=== PATIENT | male | born 1985 | race Caucasian/White ===

== ENCOUNTER 2023-07-28 09:09 | Emergency (ER) | payer MEDICAID, SELFPAY ==
[2023-07-28 09:13] VITALS: BP 135/111; PULSE 96; RESP 18; TEMP 36.8; O2SAT 98; BMI 35.3
--- NOTE | 2023-07-28 09:21 | ED.GENADUL1 ---
HPI - General Adult General Chief complaint: Skin/Abscess/Foreign Body Stated complaint: LOWER EXTREMITY PAIN Time Seen by Provider: 07/28/23 09:18 Source: patient Mode of arrival: walk-in Limitations: no limitations History of Present Illness HPI narrative: Patient complains of pain in the left lower buttock where he had an abscess removed [address] Pool - started about 2 weeks ago. he has subsequently developed nausea, achiness, cough and some loose stools over the last couple of days. Uncertain regarding ill contacts. No abdominal pain or problems with urination. Related Data Previous Rx's Medication Instructions Recorded cephalexin 500 mg capsule 500 mg PO QID 7 days #28 caps 07/28/23 nabumetone 750 mg tablet 750 mg PO BID PRN pain #14 tabs 07/28/23 ondansetron 4 mg disintegrating 4 mg PO Q6H PRN nausea and 07/28/23 tablet vomiting #14 tabs Allergies Allergy/AdvReac Type Severity Reaction Status Date / Time No Known Drug Allergies Allergy Verified 07/28/23 09:13 Exam Narrative Exam Narrative: Nurses notes and vital signs reviewed and patient is not hypoxic. afebrile General: Well-appearing and in no apparent distress. Skin: Warm, dry, no pallor noted. No rash. Eye: Pupils are equal, round and EOMI. No scleral icterus. Cardiovascular: Regular Rate and Rhythm without murmur, gallop or rub. Respiratory: No accessory muscle use or respiratory distress. Lungs are clear to auscultation, no wheezing, rales or rhonchi Back: No midline thoracic or lumbar vertebral tenderness. No CVA tenderness. Left Buttocks: incision scar is well healed without dehiscence. There is small area of erythema measuring 1cm x 2cm in the left lower buttock without palpable abscess - no induration or fluctuance. No palpable mass. Musculoskeletal: normal ROM Neurological: A&O x4. No cranial nerve dysfunction observed. No truncal ataxia. Moves all extremities. Sensation intact. Psychiatric: Cooperative and interactive. Normal mood and affect. Constitutional Vital Signs, click to edit/add: Last Vital Signs Temp 98.3 F 07/28/23 09:13 Pulse 96 H 07/28/23 09:13 Resp 18 07/28/23 09:13 BP 135/111 H 07/28/23 09:13 Pulse Ox 98 07/28/23 09:13 O2 Del Method Room Air 07/28/23 09:13 Course Vital Signs Vital signs: Vital Signs Temperature 98.3 F 07/28/23 09:13 Pulse Rate 96 H 07/28/23 09:13 Respiratory Rate 18 07/28/23 09:13 Blood Pressure 135/111 H 07/28/23 09:13 Pulse Oximetry 98 07/28/23 09:13 Oxygen Delivery Method Room Air 07/28/23 09:13 Temperature 98.3 F 07/28/23 09:13 Pulse Rate 96 H 07/28/23 09:13 Respiratory Rate 18 07/28/23 09:13 Blood Pressure 135/111 H 07/28/23 09:13 Pulse Oximetry 98 07/28/23 09:13 Oxygen Delivery Method Room Air 07/28/23 09:13 Medical Decision Making MDM Narrative Medical decision making narrative: Patient with cellulitis to the left lower buttock. He subsequently developed symptoms that we are seeing locally on larger scale with circulating viral infections. Patient discharged home with prescriptions for antibiotics, anti-emetic and anti-inflammatory pain med. He can see his PCP - [facility] - for follow up. Discharge Plan Discharge Chief Complaint: Skin/Abscess/Foreign Body Clinical Impression: Acute viral syndrome, Cellulitis of buttock, left Patient Disposition: Home, Self-Care Time of Disposition Decision: 09:27 Prescriptions / Home Meds: New nabumetone 750 mg tablet 750 mg PO BID PRN (Reason: pain) Qty: 14 0RF ondansetron 4 mg tablet,disintegrating 4 mg PO Q6H PRN (Reason: nausea and vomiting) Qty: 14 0RF cephalexin 500 mg capsule 500 mg PO QID 7 Days Qty: 28 0RF Instructions: Cellulitis (ED), Viral Syndrome (ED) Stand Alone Forms: Portal Instructions Referrals: [facility] [Primary Care Provider] - 1 week
--- NOTE | 2023-07-28 09:36 | PC.NURSE ---
2 wks of L upper leg/buttock redness and some swelling near incision site ffrom 3 years ago where pt had to have surgical debridement from infection. pt admits to feeling nauseous occasionally and having chills. denies fevers
== END 2023-07-28 09:35 | disposition home or self-care (01) ==
PROVIDERS: Emergency Provider Emergency Medicine
DX: B34.9 Viral infection, unspecified (principal); L03.317 Cellulitis of buttock
CPT/HCPCS: 99283